=== PATIENT | female | born 1965 | race Caucasian/White ===

== ENCOUNTER 2018-01-27 09:45 | Observation (INO) | payer BC ==
[~2018-01-27] VITALS: Ht 165.1 cm; Wt 80.8 kg
[2018-01-27 09:48] VITALS: BP 136/87
[2018-01-27] MEDS ORDERED: TURMERIC 450-51 EACH PO (09:51)
[2018-01-27] MEDS ORDERED: ZPAK PO (09:51)
[2018-01-27 10:03] LABS: ABSOLUTE BASOPHILS 0.1 thou/uL (0.0-0.2); ABSOLUTE MONOCYTES 0.3 thou/uL (0.0-1.2); ABSOLUTE NEUTROPHILS 3.4 thou/uL (1.6-8.1); BASOPHILS 2.1 %; HEMATOCRIT 43.3 % (37.0-47.0); HEMOGLOBIN 14.7 gm/dL (12.0-15.0); LYMPHOCYTES 21.5 %; MCH 32.2 pg (26.0-34.0); MCHC 33.9 g/dL (28.0-37.0); MONOCYTES 5.4 %; MPV 9.6 fl. (7.2-11.1); NUCLEATED RBCS 0 /100WBC; PLATELET COUNT* 221 thou/uL (150-400); RBC 4.56 mil/uL (4.20-5.00); RDW-CV 13.6 % (10.5-14.5); WBC 4.8 thou/uL (4.0-11.0)
[2018-01-27 10:14] LABS: APTT 28.5 Seconds (25.0-31.3); PROTIME 10.4 Seconds (9.20-11.50)
[2018-01-27 10:15] LABS: ANION GAP 2 mmol/L (7-16); BUN 11 mg/dL (7-18); CALCIUM 8.9 mg/dL (8.5-10.1); CHLORIDE 105 mmol/L (98-107); CO2 31 mmol/L (21-32); CREATININE 0.9 mg/dL (0.6-1.3); GLUCOSE 90 mg/dL (70-99); POTASSIUM 3.9 mmol/L (3.5-5.1); SODIUM 138 mmol/L (136-145)
[2018-01-27 10:33] LABS: ALBUMIN 3.9 g/dL (3.4-5.0); ALKALINE PHOSPHATASE 58 U/L (46-116); LIPASE 118 U/L (73-393); MAGNESIUM 1.9 mg/dL (1.8-2.4); NT-PRO BRAIN NAT PEPTIDE 33 pg/mL (<300); SGOT 11 U/L (15-37); SGPT 13 U/L (30-65); TOTAL BILIRUBIN 0.3 mg/dL (<0.1-1.0); TROPONIN-I LEVEL <0.06 ng/mL (<0.06)
--- NOTE | 2018-01-27 13:06 | EKG ---
[place] [address] ELECTROCARDIOGRAM REPORT Name: DENTONSOUMYA Mela Room: [place] [address] ADM IN M.R.#: [id number] Admission: 01/27/18 Attend Phys: Gerald Mehta MD Discharge: Date of : 65 Report #: [id number] THIS REPORT FOR: //name// [facility] ED Test Date: 2018-01-27 Test Time: 09:50:08 Pat Name: SOUMYA CHAWLA Department: Room: [facility] Gender: F Residential Treatment Staff: : 1965 Requested By: Juan Ybarra Order Number: [id number] MD: Ramana Rodrigez Measurements Intervals [place] Rate: 65 P: 72 DC: 142 QRS: 18 QRSD: 85 T: 52 QT: 391 QTc: 407 Interpretive Statements Sinus rhythm Baseline wander in lead(s) V1 No previous ECG available for comparison Electronically Signed On 01-27-2018 13:06:16 CDT by Ramana Rodrigez [email or web address] <ELECTRONICALLY SIGNED> By: Ramana Rodrigez MD, [facility] 01/27/18 1306 D: [id number] Ramana Rodrigez MD, FACC /EPI
[2018-01-27 13:37] VITALS: BP 112/65
[2018-01-27 14:24] VITALS: BP 121/67
--- NOTE | 2018-01-27 16:52 | CARD ---
[address] [address] CARDIAC CATH REPORT Name: SOUMYA CHAWLA Room: 227-1 ADM IN .R.#: [id number] Admission: 01/27/18 Attend Phys: Gerald Mehta MD Discharge: Date of : 65 Report #: [id number] THIS REPORT FOR: //name// APPROVED REPORT Study performed: 01/27/2018 14:12:55 Patient Details Patient Status: In-Patient Room #: 227 The patient is a 52 year-old female Event Personnel Ramana Rodrigez Filling Layer Up, Mari Bobby RN Airplane Tester, Gerald Driscoll, Linda Parrish Monitor Procedures Performed Art Access - R femoral artery* , Selective Right and Left Coronary Angiography, Left Heart Catheterization Procedure Narrative The patient was brought electively to the Cardiac Catheterization Laboratory and was prepped and draped in a sterile manner. The right femoral was infiltrated with 2% Lidocaine subcutaneous anesthesia. A 6fr Ultimum Sheath sheath was inserted into the right femoral artery. Coronary angiography was performed using coronary diagnostic catheters. The right coronary system was accessed and visualized with a 6fr JR 4 catheter. The left coronary system was accessed and visualized with a 6fr JL 4 catheter. The left ventricle was accessed and visualized with a 6fr Pigtail catheter. Left ventricular/Aortic Valve gradient assessed via catheter pullback. Left ventriculogram was performed in NAVA projection. Pre-demployment femoral angiogram was performed . Closure device was deployed with a 6 Fr MynxGrip 6/7F. The patient tolerated the procedure well and there were no complications associated with the procedure. Intraoperative Conscious Sedation Sedation start time: 14:57 Case end Time: 15:06 Fentanyl 50 mcg Versed 2 mg No sedation charged due to length of procedure. Fluoro Time: 1.7 minutes Dose: DAP 88337 cGycm2 258.42 mGy Contrast Type and Amount: Omnipaque [address] [place] [address] CARDIAC CATH REPORT Name: SOUMYA CHAWLA Room: [address] IN [facility]#: [id number] Admission: 01/27/18 Attend Phys: Gerald Mehta MD Discharge: Date of : 65 Report #: [id number] Coronary Angiography The patient's coronary anatomy is co- dominant. Diagnostic Cath Left Main Short and normal. LAD Normal in the proximal mid and distal portions. Diagonal 1 Large branched and normal. Diagonal 2 Moderate sized and normal. Diagonal 3 Small and normal. Circumflex The circumflex terminates in a single branched obtuse marginal branch. The circumflex obtuse marginal system is normal. OM1 Normal. Right Coronary The right coronary artery is normal in its proximal mid and distal portion. The right coronary artery bifurcates early into a small PDA and a small branched posterior lateral LV branch. R PDA Small and normal. RPLV Normal. Hemodynamics The aortic pressure is 118/58 mmHg with a mean of mmHg. The left ventricular pressure is 117/1 mmHg with a mean of mmHg. The left ventricular end diastolic pressure is 10 mmHg. There was no gradient across the aortic valve upon pullback. Conclusion 1. Normal coronary arteries. 2. Normal left ventricular systolic function. 3. Normal left ventricular end-diastolic pressure. Recommendations 1. Continue current medical management. <ELECTRONICALLY SIGNED> By: Ramana Rodrigez MD, FACC 01/27/181651 51 51Micjosefa Rodrigez MD, FACC /INF
[2018-01-27 17:09] LABS: ANION GAP 0 mmol/L (7-16); BUN 10 mg/dL (7-18); CALCIUM 8.4 mg/dL (8.5-10.1); CHLORIDE 103 mmol/L (98-107); CO2 32 mmol/L (21-32); CREATININE 0.9 mg/dL (0.6-1.3); GLUCOSE 142 mg/dL (70-99); POTASSIUM 3.6 mmol/L (3.5-5.1); SODIUM 135 mmol/L (136-145); TROPONIN-I LEVEL <0.06 ng/mL (<0.06)
[2018-01-27 17:18] LABS: CK-MB MASS 0.8 ng/mL (<0.5-3.6)
[2018-01-27 19:30] VITALS: BP 106/54
[2018-01-27 22:36] LABS: CK-MB MASS 0.5 ng/mL (<0.5-3.6)
[2018-01-28] VITALS: BP 94/50
[2018-01-28 04:00] VITALS: BP 100/62
[2018-01-28 05:59] LABS: ANION GAP 6 mmol/L (7-16); BUN 13 mg/dL (7-18); CALCIUM 8.8 mg/dL (8.5-10.1); CHLORIDE 105 mmol/L (98-107); CHOLESTEROL 179 mg/dL (<200); CO2 29 mmol/L (21-32); CREATININE 0.9 mg/dL (0.6-1.3); GLUCOSE 94 mg/dL (70-99); HDL CHOLESTEROL 66 mg/dL (>40); LDL CHOLESTEROL 105 mg/dL (<100); SODIUM 140 mmol/L (136-145); TC:HDL 2.7 Ratio (Not establshd); TRIGLYCERIDE 41 mg/dL (<150); VLDL 8 mg/dL (<40)
[2018-01-28 06:03] LABS: POTASSIUM 4.6 mmol/L (3.5-5.1)
[2018-01-28 06:15] LABS: SERUM ASSESSMENT Clear
[2018-01-28 08:00] VITALS: BP 95/49
--- NOTE | 2018-01-28 09:11 | CON ---
[facility] [address] [place] [address] CONSULTATION Name: DENTONSOUMYA Mela Room: [place] [address] ADM IN .R.#: [id number] Admission: 01/27/18 Attend Phys: Gerald Mehta MD Discharge: Date of : 65 Report #: [id number] THIS REPORT FOR: //name// CC: Gerald Gao DATE OF SERVICE: 01/27/2018 INDICATION: Chest pain consistent with unstable angina. HISTORY OF PRESENT ILLNESS: The patient is a 52-year-old white female who was admitted through the Emergency Room with complaints of midsternal chest discomfort. This started as back pain in the mid back yesterday while driving home from work. The pain resolved spontaneously. This morning, she had recurrence of the pain only this time in the mid sternal area, described as a pressure with radiation to the left jaw. She denied any diaphoresis, nausea or vomiting with the discomfort. The discomfort resolved for the most part spontaneously. She was seen in the Emergency Room at which time she was stable. She was admitted to the hospital for further evaluation. Cardiac risk factors include tobacco use and family history of coronary artery disease. PAST MEDICAL HISTORY: 1. Borderline COPD. 2. Chronic tobacco use. She quit 1 month ago. 3. Bilateral mastectomy. 4. Sinus surgery x 4. 5. Right salpingo-oophorectomy. 6. Surgeries for endometriosis. ALLERGIES: SULFA AND PENICILLIN. CURRENT MEDICATIONS: Turmeric and antibiotics for sinusitis. FAMILY HISTORY: The patient's father of a heart attack at 62. The patient's mother with lung cancer. SOCIAL HISTORY: The patient quit smoking cigarettes a month ago. Drinks alcohol occasionally. PHYSICAL EXAMINATION: VITAL SIGNS: Stable. Blood pressure is 121/67, pulse 57 and regular. GENERAL: This is a pleasant young lady, in no distress. Mood and affect appropriate. HEENT: Extraocular muscles intact. Mucous membranes are moist. NECK: Shows no jugular venous distention. There are no carotid bruits. CHEST: Reveals clear lung simon [place] [address] CONSULTATION Name: SOUMYA CHAWLA Mela Room: [address] IN [facility]#: [id number] Admission: 01/27/18 Attend Phys: Gerald Mehta MD Discharge: Date of : 65 Report #: [id number] CARDIAC: Reveals regular rhythm, normal S1, S2. I do not appreciate a gallop or murmur. ABDOMEN: Reveals normal bowel sounds. The abdomen is soft and nontender. EXTREMITIES: Shows no edema. Peripheral pulses 2+ and easily palpable. SKIN: Warm and dry. A 12-lead EKG shows sinus rhythm without significant ST or T-wave abnormality. Labs are reviewed. Initial troponin is less than 0.06. Chest x-ray shows no acute cardiopulmonary abnormality. CMP is within normal limits. NT-proBNP is 33. Coags are normal. IMPRESSION AND RECOMMENDATIONS: 1. Chest pain with symptoms to suggest unstable angina. We will proceed to left heart catheterization and coronary angiography at this time. Further cardiac treatment and intervention pending results of that study. 2. Sinusitis. Continue current antibiotics. 3. Tobacco use. The patient quit smoking one month ago. 4. Family history of coronary artery disease as outlined above. <ELECTRONICALLY SIGNED> By: Ramana Rodrigez MD, FACC 01/28/18 0911 [id number] Rodrigez MD, FACC /nt
[2018-01-28 11:09] VITALS: BP 95/49
== END 2018-01-28 10:27 | disposition home or self-care (01) ==
LOC: M.ERS 09:45 → M.TBA-ER 12:46 → M.2W 12:46
PROVIDERS: Emergency Medicine; ADMIT Internal Medicine
DX: I20.0 Unstable angina (principal); R07.9 Chest pain, unspecified; K11.20 Sialoadenitis, unspecified; J32.9 Chronic sinusitis, unspecified; F41.9 Anxiety disorder, unspecified; J44.9 Chronic obstructive pulmonary disease, unspecified; F41.1 Generalized anxiety disorder; Z98.890 Other specified postprocedural states; F17.210 Nicotine dependence, cigarettes, uncomplicated; Z82.49 Family history of ischemic heart disease and other diseases of the circulatory system